=== PATIENT | male | born 1995 | race Two or more races ===

== ENCOUNTER 2018-11-30 12:05 | Emergency (ER) | payer SELFPAY ==
[~2018-11-30] VITALS: Ht 170.2 cm; Wt 65.8 kg
[2018-11-30 12:15] VITALS: BP 119/73
--- NOTE | 2018-11-30 12:30 | Emergency Room Report ---
History of Present Illness General Chief Complaint: Headache Source: Patient Present Illness HPI 23-year-old Russian-speaking male with no significant past medical history here complaining of 1 week of sharp pulsatile headache that started in the right side of his head radiating to his right eye and down his neck. Patient reports that he has photophobia as well as nausea however has not vomited. He also reports that he has had this type of headache in the past and has never been evaluated for it. Patient usually takes Tylenol or ibuprofen with minimal symptom relief. Complains of minimal dizziness however denies blurry vision at this time. Reports when his headache is not worse he has minimal blurry vision. Denies any aura. Denies chest pain, shortness of breath, palpitation, head injury, loss of balance, vertigo, tinnitus. Patient is [employer] and does not have a primary care provider as he does not have any health insurance. Patient refuses to do any imaging today. Patient denies drug use, smoking, alcohol intake. Denies URI symptoms Allergies: Coded Allergies: No Known Allergies (Unverified , 11/30/18) Patient History Past Medical History: see triage record Past Surgical History: unable to obtain Pertinent Family History: none Immunizations: UTD Reviewed Nursing Documentation: PMH: Agreed; PSxH: Agreed Nursing Documentation-PMH Past Medical History: No History, Except For Review of Systems All Other Systems: negative except mentioned in HPI Physical Exam Vital Signs Date Time Temp Pulse Resp B/P (MAP) Pulse Ox O2 Delivery O2 Flow Rate FiO2 11/30/18 12:08 98.1 73 18 119/73 (88) 99 Room Air Sp02 EP Interpretation: reviewed, normal General Appearance: normal inspection, well appearing, no apparent distress, alert, GCS 15 Head: normocephalic, atraumatic Eyes: bilateral eye normal inspection, bilateral eye PERRL ENT: normal ENT inspection, hearing grossly normal, normal pharynx Neck: normal inspection, full range of motion, supple Respiratory: normal inspection, chest non-tender, lungs clear Cardiovascular #1: normal inspection, regular rate, rhythm, no edema, no murmur Gastrointestinal: normal inspection, non tender, soft Rectal: deferred Genitourinary: no CVA tenderness Musculoskeletal: normal inspection, back normal, digits/nails normal, gait/ station normal Neurologic: normal inspection, alert, oriented x3, responsive, blocklayer III-XII nml as tested, motor strength/tone normal, DTRs symmetric, SLR negative, sensory intact, cerebellar normal, normal gait, speech normal Psychiatric: normal inspection, judgement/insight normal, memory normal, mood/ affect normal, no suicidal/homicidal ideation Skin: no rash Lymphatic: normal inspection, no adenopathy Medical Decision Making PA Attestation All diagnoses and treatment plans were reviewed and discussed with my supervising physician Dr. Melton Diagnostic Impression: Primary Impression: Migraine headache ER Course 23-year-old Russian-speaking male with no significant past medical history here complaining of 1 week of sharp pulsatile headache that started in the right side of his head radiating to his right eye and down his neck. Patient reports that he has photophobia as well as nausea however has not vomited. He also reports that he has had this type of headache in the past and has never been evaluated for it. Patient usually takes Tylenol or ibuprofen with minimal symptom relief. Complains of minimal dizziness however denies blurry vision at this time. Reports when his headache is not worse he has minimal blurry vision. Denies any aura. Denies chest pain, shortness of breath, palpitation, head injury, loss of balance, vertigo, tinnitus. Patient is [employer] and does not have a primary care provider as he does not have any health insurance. Patient refuses to do any imaging today. Patient denies drug use, smoking, alcohol intake. Denies URI symptoms Ddx considered but are not limited to: Migraine headache with a aura, migraine headache without aura, tension headache, cluster headache, subarachnoid hemorrhage Vital signs: are WNL, pt. is afebrile H&PE are most consistent with: Migraine headache without aorta ORDERS: Sumatriptan, Excedrin, Zofran ED INTERVENTIONS: None required at this time. DISCHARGE: At this time pt. is stable for d/c to home. Will provide printed patient care instructions, and any necessary prescriptions. Care plan and follow up instructions have been discussed with the patient prior to discharge. [facility] is to follow-up with a neurologist for further assessment and MRI of the brain recommended. I also advised him to return to the emergency room if worsening symptoms. Last Vital Signs Date Time Temp Pulse Resp B/P (MAP) Pulse Ox O2 Delivery O2 Flow Rate FiO2 11/30/18 12:08 98.1 73 18 119/73 (88) 99 Room Air Disposition: HOME, SELF-CARE Condition: Stable Scripts Ondansetron (Zofran) 4 Mg Tablet 4 MG ORAL Q6H PRN for Nausea & Vomiting, #12 TAB Prov: Mercy Multani 11/30/18 Aspirin/Acetaminophen/Caffeine (EXCEDRIN EXTRA STRENGTH CAPLET) 1 Each Tablet 1 EACH PO BID, #21 TAB Prov: Mercy Multani 11/30/18 Sumatriptan Succinate* (IMITREX*) 50 Mg Tablet 50 MG ORAL DAILY PRN MIGRAINE, #15 TAB Prov: Mercy Multani 11/30/18 Patient Instructions: Migraine Headache Additional Instructions: Follow-up with a primary care provider for referral to a neurologist if worsening symptoms return to the emergency room Mer[facility] Multani Nov 30, 2018 12:30
[2018-11-30] MEDS ORDERED: IMITREX50 MG ORAL (12:32)
[2018-11-30] MEDS ORDERED: ZOFRAN4 M1 ORAL (12:32)
[2018-11-30] MEDS ORDERED: EXCEDRIN EXTRA1 EAC1 PO (12:32)
--- NOTE | 2018-11-30 12:49 | NUR ---
Patient was evaluated, treated and discharged with aftercare instructions by MD/PA
== END 2018-11-30 12:49 | disposition home or self-care (01) ==
LOC: EMR 12:37
DX: G43.909 Migraine, unspecified, not intractable, without status migrainosus (principal)
CPT/HCPCS: 99282